=== PATIENT | male | born 1985 | race African-American/Black ===

== ENCOUNTER 2020-08-28 13:03 | Emergency (ER) | payer OTHER ==
[~2020-08-28] VITALS: Ht 170.2 cm; Wt 85.3 kg
[2020-08-28 13:30] VITALS: BP 139/86
--- NOTE | 2020-08-28 13:30 | NUR ---
ED Nurse Note: Pt walked in to ED from home c/o right foot pain after stepping on broken glass at home about a week ago and limping noted. Pt unable to bear weight on affected foot. AAOx4, no SOB.
--- NOTE | 2020-08-28 14:25 | NUR ---
ED Nurse Note: Xray at bedside.
--- NOTE | 2020-08-28 14:38 | Emergency Room Report ---
History of Present Illness General Chief Complaint: Skin Rash/Abscess Source: Patient Present Illness Allergies: Coded Allergies: No Known Allergies (Unverified , 08/28/20) COVID-19 Screening Contact w/high risk pt: No Experienced COVID-19 symptoms?: No COVID-19 Testing performed ROUSTABOUT HEAD: Yes COVID-19 Screening: Negative COVID-19 COVID-19 Testing Source: [employer] Patient History Past Medical History: see triage record Past Surgical History: none Pertinent Family History: none Reviewed Nursing Documentation: PMH: Agreed; PSxH: Agreed Nursing Documentation-PMH Past Medical History: No Stated History Physical Exam Vital Signs Date Time Temp Pulse Resp B/P (MAP) Pulse Ox O2 Delivery O2 Flow Rate FiO2 08/28/20 13:21 98.2 114 18 139/86 (103) 99 Room Air Medical Decision Making PA Attestation Dr. Schilling is my supervising Physician whom patient management has been discussed with. Diagnostic Impression: Primary Impression: Foreign body (FB) in soft tissue Additional Impression: Abscess ER Course Pt. presents to the ED c/o pain, swelling, and erythema of right foot x 1 week. Patient reports progressive pain. Patient reports that he stepped in broken glass and believes he still has a piece that is been left inside. Patient reports he is up-to-date with tetanus vaccine. He denies bleeding. He denies fevers or chills. He denies trauma or fall otherwise. Patient reports bearing weight or walking exacerbates his symptoms. No other aggravating relieving factors at this time. Patient denies history of immune compromise, poor blood flow or diabetes. Ddx considered but are not limited to cellulitis, abscess, cystic acne, necrotizing fasciitis, insect bite. Vital signs: are WNL, pt. is afebrile H&PE are most consistent with retained soft tissue foreign body of the right foot with subsequent cellulitis/abscess due to pus accumulation. ORDERS: none required at this time, the diagnosis is clinical ED INTERVENTIONS: -I & D.-- -Moderate amount of purulent fluid was drained. Radiopaque foreign body was located and visualized with blunt dissection and removed using hemostats. Bacitracin and sterile dressing was applied by RN. Abdiaziz wrap applied to the right foot by certified hyperbaric technologist. Pt. remains neurovascularly intact. -Patient is provided with crutches and instructed on their use DISCHARGE: At this time pt. is stable for d/c to home. Will provide printed patient care instructions, and any necessary prescriptions. Care plan and follow up instructions have been discussed with the patient prior to discharge. Other X-Ray Diagnostic Results Other X-Ray Diagnostic Results : X-Ray ordered: Right foot # of Views/Limited Vs Complete: 3 View Indication: Pain EP Interpretation: Yes PA Xray: Interpretation reviewed, by supervising MD, and agrees with findings. Interpretation: no dislocation, no fractures, other - Radiopaque foreign body is visualized in the soft tissue of the lateral aspect of the right foot Impression: Other - abnormal Electronically Signed by: homa gonsalez PA-C Last Vital Signs Date Time Temp Pulse Resp B/P (MAP) Pulse Ox O2 Delivery O2 Flow Rate FiO2 08/28/20 13:30 98.2 114 18 139/86 99 Room Air Status: improved Disposition: HOME, SELF-CARE Condition: Stable Scripts Bacitracin (Bacitracin) 28.4 Gm Oint...g. 1 APPLIC TOPIC THREE TIMES A DAY, #28.4 GM Prov: Homa Gonsalez 08/28/20 Acetaminophen With Codeine (T#3) (TYLENOL #3 TAB*) Y Tab 1 TAB ORAL Q6H PRN for For Pain, #12 TAB Prov: Homa Gonsalez 08/28/20 Trimethoprim/Sulfamethoxazole 160/800* (BACTRIM DS TABLET*) 1 Each Tablet 1 TAB ORAL TWICE A DAY for 7 Days, #14 TAB Prov: Homa Gonsalez 08/28/20 Cephalexin* (KEFLEX*) 500 Mg Capsule 500 MG ORAL EVERY 12 HOURS for 14 Days, #14 CAP 0 Refills Prov: Homa Gonsalez 08/28/20 Referrals: Ladonna Sanabria [facility]. [facility] Patient Instructions: Abscess, [id number], Sliver Removal, Care After Additional Instructions: Take medications as directed. Do not drink alcohol, drive, or operate heavy machinery while taking Tylenol # 3 as this may cause drowsiness. Follow up with a Primary Care Provider in 3-5 days, even if your symptoms have resolved. --Please review list of primary care clinics, if you do not already have a primary care provider Return sooner to ED if new symptoms occur, or current symptoms become worse. - Please note that this Emergency Department Report was dictated using [employer] rental clerk technology software, occasionally this can lead to erroneous entry secondary to interpretation by the dictation equipment. Homa Gonsalez Aug 28, 2020 14:38
[2020-08-28] MEDS ORDERED: Bacitracin Oint UD TOPIC ONE (14:45)
[2020-08-28] MEDS ORDERED: Lidocaine 2% 20mg/ml/EPI 0.01mg/ml 20ml INJ ONE (14:45)
[2020-08-28] MEDS ORDERED: Cephalexin 500mg cap ORAL ONE (15:15)
[2020-08-28] MEDS ORDERED: Bactrim-DS 1 tab ORAL ONE (15:15)
[2020-08-28] MEDS ORDERED: Tylenol #3 tab (300mg/30mg) ORAL ONE (15:15)
[2020-08-28] MEDS ORDERED: CEPHALEXIN500 MG ORAL (15:28)
[2020-08-28] MEDS ORDERED: ACETAMINOPHEN-1 EAC1 ORAL (15:28)
[2020-08-28] MEDS ORDERED: BACITRACIN15 GM TOPIC (15:28)
[2020-08-28] MEDS ORDERED: BACTRIM DS TAB1 EAC1 ORAL (15:28)
--- NOTE | 2020-08-28 15:53 | NUR ---
ED Nurse Note: Pt cleared by ERPA for discharge. DC instructions/prescription was given and explained to pt and verbalized understanding of teachings. All medical deviecs such as ID band removed. Pt is AAO x4, ambulatory and left with all personal belongings. P/u by his s/o
--- NOTE | 2020-08-28 16:27 | Diagnostic Imaging Report ---
INDICATION: Foot pain TECHNIQUE: Frontal, lateral, and oblique views of the right foot COMPARISON: None FINDINGS: There is no acute fracture or dislocation. Joint spaces are maintained. There is a 3 mm curvilinear hyperdensity in the lateral and plantar soft tissues adjacent to the fifth metacarpophalangeal joint. There is associated lateral forefoot soft tissue swelling. IMPRESSION: 1. No acute fracture or dislocation. 2. Curvilinear density in the lateral and plantar soft tissues along the fifth digit suspicious for retained foreign body.
== END 2020-08-28 15:50 | disposition home or self-care (01) ==
LOC: EMR 15:45
DX: M79.5 Residual foreign body in soft tissue (principal); L02.611 Cutaneous abscess of right foot
CPT/HCPCS: 10060; 73630; Z7502; 99283